=== PATIENT | male | born 1950 | race Caucasian/White ===

== ENCOUNTER → 2023-11-09 | Outpatient (REF) | payer OTHER | LOC: DX 08:39 | PROVIDERS: ATTEND Surgery | DX: R13.13 Dysphagia, pharyngeal phase (principal) | CPT/HCPCS: 74220 ==

== ENCOUNTER 2023-12-05 11:13 | Emergency (ER) | payer MEDICARE, OTHER ==
[~2023-12-05] VITALS: Ht 172.7 cm; Wt 63.5 kg
[2023-12-05 11:34] VITALS: PULSE 66; RESP 15; TEMP 98.2; O2SAT 100
[2023-12-05] MEDS: ONDANSETRON HCL INJ 2MG/ML 2ML 2 MG/ML VIAL IV STA (11:40)
[2023-12-05] MEDS: KETOROLAC TROMETHAMINE 30 MG/ML VIAL IV STA (11:40)
[2023-12-05] MEDS ORDERED: KETOROLAC TROMETHAMINE 30 MG/ML VIAL ONE (11:41)
[2023-12-05 12:15] LABS: BASOPHILS # (AUTO) 0.1 (0.0-0.1); BASOPHILS % 0.3 % (0.0-1.0); EOSINOPHILS % 0.1 % (0.0-6.0); HEMATOCRIT 47.9 % (38.2-49.6); HEMOGLOBIN 15.7 g/dL (14.0-18.0); LYMPHOCYTES # (AUTO) 20.8 (1.0-3.2); LYMPHOCYTES % 77.6 % (18.0-39.1); MEAN CORPUSCULAR HEMOGLOBIN 32.8 pg (28-32); MEAN CORPUSCULAR HGB CONC 32.8 g/dL (31-35); MEAN CORPUSCULAR VOLUME 100.2 fL (81-99); MONOCYTES # (AUTO) 0.8 (0.2-0.8); NEUTROPHILS % 18.9 % (38.7-80.0); PLATELET COUNT 170 x10e3/uL (140-360); RED BLOOD COUNT 4.78 x10e6/uL (4.3-5.7); RED CELL DISTRIBUTION WIDTH 12.7 % (11.7-14.4); WHITE BLOOD COUNT 26.74 x10e3/uL (4.8-10.8)
[2023-12-05 12:22] LABS: BILIRUBIN,URINE NEGATIVE (NEGATIVE); CLARITY,URINE CLOUDY (CLEAR); COLOR,URINE YELLOW (YELLOW); GLUCOSE, URINE NEGATIVE (NEGATIVE); KETONES,URINE NEGATIVE (NEGATIVE); LEUKOCYTE ESTERASE ,URINE TRACE (NEGATIVE); NITRITE,URINE NEGATIVE (NEGATIVE); PH,URINE 6.5 (5 - 7); PROTEIN,URINE DIPSTICK TRACE (NEGATIVE); URINE UROBILINOGEN 0.2 mg/dL (0.2 - 1)
[2023-12-05 12:26] LABS: BACTERIA,URINE FEW /HPF; EPITHELIAL CELLS,URINE FEW /LPF; RBC,URINE >50 /HPF (0-5); WBC,URINE (MAN) 0-5 /HPF (0-5)
[2023-12-05 12:32] LABS: ALBUMIN 4.1 g/dL (3.5-5.0); ALBUMIN/GLOBULIN RATIO 1.4 (0.8-2.0); BILIRUBIN,TOTAL 0.8 mg/dL (0.2-1.2); CALCIUM 9.6 mg/dL (8.4-10.2); CREATININE, SERUM 1.38 mg/dL (0.72-1.25); TOTAL PROTEIN 7.1 g/dL (6.5-8.1)
[2023-12-05 13:13] LABS: ANION GAP 22.5 mmol/L (8-16); POTASSIUM 4.5 mmol/L (3.0-5.1)
[2023-12-05 13:17] LABS: LYMPHOCYTES % (MANUAL) 53 % (19-48); MONOCYTES % (MANUAL) 5 % (3.4-9.0); NEUTROPHILS % (MANUAL) 34 % (40-74); PLATELET ESTIMATE ADEQUATE; PLATELET MORPHOLOGY COMMENT NORMAL; REACTIVE LYMPHOCYTES 8
[2023-12-05 13:18] LABS: RBC MORPHOLOGY COMMENT NORMAL
[2023-12-05] MEDS ORDERED: FLOMAX0.4 MG PO (14:13)
[2023-12-05] MEDS ORDERED: ONDANSETRON ODT4 MG PO (14:13)
[2023-12-05] MEDS ORDERED: ULTRAM 50MG50 MG PO (14:13)
== END 2023-12-05 14:45 | disposition home or self-care (01) ==
LOC: ER 11:18
DX: N20.0 Calculus of kidney (principal)
CPT/HCPCS: 36415; 74176; 80053; 81001; 85025; 87086; 87186; 99284; J1885; J2405

== ENCOUNTER → 2024-08-12 | Outpatient (REF) | payer MEDICARE ==
[~2024-08-12] MED LIST: FLOMAX0.4 MG PO; ONDANSETRON ODT4 MG PO; ULTRAM 50MG50 MG PO
== END ==
LOC: RAD 09:06
PROVIDERS: ATTEND Internal Medicine
DX: I34.1 Nonrheumatic mitral (valve) prolapse (principal)
CPT/HCPCS: 93306